=== PATIENT | male | born 1995 | race African-American/Black ===

== ENCOUNTER 2017-03-11 18:45 | Emergency (ER) | payer OTHER ==
[~2017-03-11] VITALS: Ht 175.3 cm; Wt 74.0 kg
[2017-03-11 19:18] VITALS: Ht 175.3 cm; Wt 74.0 kg
[2017-03-11 21:39] LABS: BASOPHILS % 0.3 % (0.0-2.0); EOSINOPHILS # 0.1 10^3/ul (0.0-0.5); EOSINOPHILS % 1.3 % (0.0-7.0); HEMATOCRIT 46.4 % (42.0-52.0); HEMOGLOBIN 15.6 g/dl (14.0-18.0); LYMPHOCYTES # 3.6 10^3/ul (0.8-2.9); LYMPHOCYTES % 33.3 % (18.0-55.0); MEAN CORPUSCULAR HEMOGLOBIN 27.7 pg (29.0-33.0); MEAN CORPUSCULAR HGB CONC 33.6 g/dl (32.0-37.0); MEAN CORPUSCULAR VOLUME 82.4 fl (72.0-104.0); MEAN PLATELET VOLUME 9.9 fl (7.4-10.4); MONOCYTE # 1.1 10^3/ul (0.3-0.9); MONOCYTES % 9.7 % (0.0-13.0); NEUTROPHILS % 55.2 % (30.0-74.0); PLATELET COUNT 242 10^3/UL (140-415); RED BLOOD COUNT 5.63 10^6/ul (4.70-6.10); RED CELL DISTRIBUTION WIDTH 13.4 % (11.5-14.5); WHITE BLOOD COUNT 10.9 10^3/ul (4.8-10.8)
[2017-03-11 22:05] LABS: ALBUMIN 4.5 g/dl (3.3-4.9); ALBUMIN/GLOBULIN RATIO 1.36; CALCIUM 9.4 mg/dl (8.4-10.2); CREATININE 0.83 mg/dl (0.61-1.24); POTASSIUM 4.2 mmol/L (3.5-5.1); TOTAL PROTEIN 7.8 g/dl (6.1-8.1)
--- NOTE | 2017-03-11 22:36 | ERD ---
ER Documentation Chief Complaint Chief Complaint pt reports he feels fatigue and weak HPI 17-year-old male presents to the emergency department complaining of feeling fatigued for the past week and a half. Patient states that he was evaluated at a different hospital last week and had blood work done which was unremarkable. Patient states that he is trying to get an appointment to see primary care physician if he is having difficulty. Patient admits to weight loss. He denies any fevers, chest pain, shortness of breath, abdominal pain, joint pain. He denies taking any medications for this. ROS All systems reviewed and are negative except as per history of present illness. PMhx/Soc Hx Respiratory Disorders: Yes (ASTHMA) Hx Miscellaneous Medical Probl: Yes (HX THYROID CA) Hx Alcohol Use: Yes Hx Substance Use: Yes (MARIJUANA) Hx Tobacco Use: Yes Smoking Status: Current every day smoker Physical Exam Vitals Vital Signs Date Time Temp Pulse Resp B/P Pulse Ox O2 Delivery O2 Flow Rate FiO2 03/11/17 22:57 98.0 52 20 130/58 100 Room Air 03/11/17 19:18 98.7 63 16 140/88 100 Physical Exam Const: Patient is well-appearing, he does not exhibit any distress Head: Atraumatic Eyes: Normal Conjunctiva ENT: Normal External Ears, Nose and Mouth. Neck: Full range of motion..~ No meningismus. Resp: Clear to auscultation bilaterally Cardio: Regular rate and rhythm, no murmurs Abd: Soft, non tender, non distended. Normal bowel sounds Skin: No petechiae or rashes Back: No midline or flank tenderness Ext: No cyanosis, or edema Neur: Awake and alert Psych: Normal Mood and Affect Result Diagram: 03/11/17212503/11/172125 Results 24 hrs Laboratory Tests Test 03/11/17 21:26 White Blood Count 10.910^3/ul Red Blood Count 5.6310^6/ul Hemoglobin 15.6g/dl Hematocrit 46.4% Mean Corpuscular Volume 82.4fl Mean Corpuscular Hemoglobin 27.7pg Mean Corpuscular Hemoglobin Concent 33.6g/dl Red Cell Distribution Width 13.4% Platelet Count 40312^3/UL Mean Platelet Volume 9.9fl Neutrophils % 55.2% Lymphocytes % 33.3% Monocytes % 9.7% Eosinophils % 1.3% Basophils % 0.3% Nucleated Red Blood Cells % 0.0/100WBC Neutrophils # 6.010^3/ul Lymphocytes # 3.610^3/ul Monocytes # 1.110^3/ul Eosinophils # 0.110^3/ul Basophils # 0.010^3/ul Nucleated Red Blood Cells # 0.010^3/ul Sodium Level 142mmol/L Potassium Level 4.2mmol/L Chloride Level 102mmol/L Carbon Dioxide Level 29mmol/L Anion Gap 15 Blood Urea Nitrogen 20mg/dl Creatinine 0.83mg/dl Glucose Level 86mg/dl Calcium Level 9.4mg/dl Total Bilirubin 0.0mg/dl Direct Bilirubin 0.00mg/dl Indirect Bilirubin 0.0mg/dl Aspartate Amino Transf (AST/SGOT) 17IU/L Alanine Aminotransferase (ALT/SGPT) 27IU/L Alkaline Phosphatase 83IU/L Total Protein 7.8g/dl Albumin 4.5g/dl Globulin 3.30g/dl Albumin/Globulin Ratio 1.36 Free Thyroxine Index 3.32ug/ml Thyroxine (T4) 8.8ug/dl Triiodothyronine (T3) Uptake 37.7% Procedures/MDM This is a 21-year-old male presenting to the emergency department complaining of fatigue for the past 1 week and a half. Patient appears well, he has stable vital signs. Patient has a history of hypothyroidism with normal thyroid panel. CBC did not show any evidence of significant leukocytosis or anemia. CMP was unremarkable. I have discussed with patient that he stable to be discharged home to follow-up with primary care physician. Departure Diagnosis: Primary Impression: Fatigue Condition: Stable Patient Instructions: Generalized Weakness, Weakness, Unk Cause Referrals: [facility], [facility]–1983 YOU HAVE RECEIVED A MEDICAL SCREENING EXAM AND THE RESULTS INDICATE THAT YOU DO NOT HAVE A CONDITION THAT REQUIRES URGENT TREATMENT IN THE EMERGENCY DEPARTMENT. FURTHER EVALUATION AND TREATMENT OF YOUR CONDITION CAN WAIT UNTIL YOU ARE SEEN IN YOUR DOCTORS OFFICE WITHIN THE NEXT 1-2 DAYS. IT IS YOUR RESPONSIBILITY TO MAKE AN APPOINTMENT FOR FOLOW-UP CARE. IF YOU HAVE A PRIMARY DOCTOR --you should call your primary doctor and schedule an appointment IF YOU DO NOT HAVE A PRIMARY DOCTOR YOU CAN CALL OUR PHYSICIAN REFERRAL HOTLINE AT IF YOU CAN NOT AFFORD TO SEE A PHYSICIAN YOU CAN CHOSE FROM THE FOLLOWING [facility] [address] [facility] [address] [facility] [address] [facility] [address] [facility] [address] [facility]. [facility] [address] [facility]SPECIALTIES Additional Instructions: FOLLOW UP WITH YOUR PRIMARY CARE PHYSICIAN TOMORROW.Return to this facility if you are not improving as expected. Return to this facility if you are not improving as expected. AYO EVERETT PA-C Mar 11, 2017 22:36
[2017-03-11 22:43] LABS: T3 UPTAKE 37.7 % (23.5-40.5)
[2017-03-11 22:57] VITALS: BP 130/58; PULSE 52; RESP 20; TEMP 98
== END 2017-03-11 22:58 | disposition home or self-care (01) ==
LOC: FTE 18:45
DX: R53.83 Other fatigue (principal); J45.909 Unspecified asthma, uncomplicated; F17.210 Nicotine dependence, cigarettes, uncomplicated; Z85.850 Personal history of malignant neoplasm of thyroid
CPT/HCPCS: 80053; 84436; 84479; 85025; Z7502; 99283